=== PATIENT | female | born 1980 ===

== ENCOUNTER 2021-11-15 17:52 | Outpatient (CLI) | payer OTHER | END 2021-11-15 18:30 | disposition home or self-care (01) | LOC: NST 17:52 | PROVIDERS: ATTEND Obstetrics & Gynecology Maternal & Fetal Medicine | DX: Z34.83 Encounter for supervision of other normal pregnancy, third trimester (principal) ==

== ENCOUNTER 2021-11-22 10:00 | Inpatient (IN) | payer OTHER ==
[~2021-11-22] VITALS: Ht 149.9 cm; Wt 84.8 kg
[2021-12-11] MEDS ORDERED: SYNTHROID50 MCG PO (08:16)
[2021-12-11] MEDS ORDERED: COMPLETENATE T1 EACH PO (08:18)
[2021-12-11] MEDS ORDERED: CALCIUM500 M1 PO (08:19)
[2021-12-11] MEDS ORDERED: FOLIC ACID0.8 M1 PO (08:19)
== END 2021-12-14 16:34 | disposition home or self-care (01) | DRG 788 ==
LOC: SURH 12-10 10:00 → LDR 12-11 07:11 → OB/GYN 12-11 17:25
PROVIDERS: Obstetrics & Gynecology; ADMIT Obstetrics & Gynecology; ATTEND Obstetrics & Gynecology
PROC: 4A1HXCZ Monitoring of Products of Conception, Cardiac Rate, External Approach (ICD-10-PCS; 2021-12-11)
PROC: 10D00Z1 Extraction of Products of Conception, Low, Open Approach (ICD-10-PCS; principal; 2021-12-11 15:00)
DX: O62.0 Primary inadequate contractions (principal); Z3A.40 40 weeks gestation of pregnancy; Z37.0 Single live birth; Z20.822 Contact with and (suspected) exposure to COVID-19